=== PATIENT | male | born 2000 | race African-American/Black ===

== ENCOUNTER 2022-02-19 19:26 | Emergency (ER) | payer MEDICAID ==
[2022-02-19] MEDS ORDERED: Aspirin 81 MG Tab.Chew PO ONE (19:52)
[2022-02-19 20:25] LABS: CHLORIDE,CL 103 mmol/L (98-107); SODIUM,NA 139 mmol/L (136-145)
[2022-02-19 20:26] LABS: ANION GAP 11.5 mmol/L (5-15); ESTIMATED GFR 89 mL/min (>=60)
== END 2022-02-19 22:58 | disposition home or self-care (01) ==
LOC: VM.ED 19:26
DX: I30.9 Acute pericarditis, unspecified (principal)
CPT/HCPCS: 36415; 71045; 80053; 84484; 85025; 86140; 93010; 99284; 99285

== ENCOUNTER 2022-02-23 15:38 | Emergency (ER) | payer MEDICAID ==
[2022-02-23] MEDS ORDERED: Iopamidol 755 Mg/ML 100 ML Bottle ONE (16:30)
[2022-03-19 11:58] LABS: CHLORIDE,CL 102 mmol/L (98-107); ESTIMATED GFR 111 mL/min (>=60); SODIUM,NA 138 mmol/L (136-145)
[2022-03-19 12:00] LABS: CORONAVIRUS COVID-19 NAA NEGATIVE (NEGATIVE)
== END 2022-02-23 19:08 | disposition home or self-care (01) ==
LOC: VM.ED 15:38
DX: I31.9 Disease of pericardium, unspecified (principal); Z20.822 Contact with and (suspected) exposure to COVID-19; Z79.82 Long term (current) use of aspirin
CPT/HCPCS: 0240U; 36415; 71045; 71275; 80053; 83735; 84100; 84443; 84484; 85025; 85379; 86140; 93005; 93010; 99285; Q9967

== ENCOUNTER 2022-09-03 18:42 | Emergency (ER) | payer MEDICAID ==
[2022-09-03 19:22] LABS: ANION GAP 11.7 mmol/L (5-15)
== END 2022-09-03 19:40 | disposition home or self-care (01) ==
LOC: VM.ED 18:42 → SUPCPDRO 18:42 → VM.ED 19:40
DX: J06.9 Acute upper respiratory infection, unspecified (principal)
CPT/HCPCS: 36415; 71046; 80048; 85025; 86140; 99283; 99285